=== PATIENT | male | born 1955 | race Caucasian/White ===

== ENCOUNTER 2017-06-15 11:26 | Day surgery (SDC) | payer MEDICAID ==
[2017-06-15] VITALS (10 sets, daily range): BP systolic 130–197; BP diastolic 74–127
[2017-06-15] MEDS ORDERED: LACTATED RINGERS 1,000 ML IV ONE (11:51)
[2017-06-15] MEDS ORDERED: meTOprolol 5 MG/5 ML (LOPRESSOR) VIAL ONE (13:14)
[2017-06-15] MEDS ORDERED: MIDAZOLAM 2 MG/2 ML (VERSED) VIAL ONE (13:24)
[2017-06-15] MEDS ORDERED: PROPOFOL INJECTION 50 ML IV ONE (13:24)
[2017-06-15] MEDS ORDERED: meTOprolol 5 MG/5 ML (LOPRESSOR) VIAL IV ONE (13:45)
--- NOTE | 2017-06-15 13:59 | Progress Note-Pre Operative ---
Pre-Operative Progress Note H&P Reviewed The H&P was reviewed, patient examined and no changes noted. Time Seen by Provider: 13:52 Date H&P Reviewed: June 15, 2017 Time H&P Reviewed: 13:55 Pre-Operative Diagnosis: Blood in stool MODE GARCIA DO June 15, 2017 13:59
[2017-06-15] MEDS ORDERED: LACTATED RINGERS 1,000 ML IV PRN (14:00)
[2017-06-15] MEDS ORDERED: proPOfol 200 MG/20 ML (DIPRIVAN) VIAL IV ONE ×2 (14:54→15:12)
--- NOTE | 2017-06-15 14:56 | Anesthesia-General Post-Op ---
MAC Patient Condition Mental Status/LOC: Same as Preop Cardiovascular: Satisfactory Nausea/Vomiting: Absent Respiratory: Satisfactory Pain: Controlled Complications: Absent Post Op Complications Complications None Follow Up Care/Instructions Patient Instructions None needed. Anesthesiology Discharge Order Discharge Order Patient is doing well, no complaints, stable vital signs, no apparent adverse anesthesia problems. No complications reported per nursing. STAS BUCHANAN CRNA June 15, 2017 14:56
--- NOTE | 2017-06-15 15:28 | Progress Note-Post Operative ---
Post-Operative Progess Note Surgeon (s)/Director Of Online Merchandising (s) Surgeon MODE GARCIA DO Director Of Online Merchandising: none Pre-Operative Diagnosis Blood in stool Post-Operative Diagnosis Polyps Diverticula Internal hemorrhoids Procedure & Operative Findings Date of Procedure 06/15/17 Procedure Performed/Findings Colon with snare Anesthesia Type IV sedation by DIVIDEND CLERK Estimated Blood Loss Estimated blood loss (mL): scant Specimens/Packing Specimens Removed 2 polyps from ascending colon MODE GARCIA DO June 15, 2017 15:28
--- NOTE | 2017-06-15 15:29 | Endoscopy Discharge Instruct ---
Endo Procedure/Findings Findings 1.: Polyp 2.: Diverticulosis 3.: Internal Hemorrhoids Discharge Instructions - Activity: You might feel a little sleepy until tomorrow. This is due to the medicine you received to relax you. Until tomorrow, you should: NOT drive a car, operate machinery or power tools. NOT drink any alcoholic beverages. NOT make any important decisions or sign importortant papers. Do not return to work until tomorrow, unless otherwise instructed. Resume previous activities tomorrow. Diet: Start by taking liquids. If you tolerate liquids, advance to solid food. Notify Physician - If you experience excessive bleeding, unusual abdominal pain, fever, or chest pain, contact your doctor immediately. Follow-Up: - I have received and understand the above instructions and will call my doctor if I have any further questions. Patient Signature Date Nurse Signature Other (Relationship) MODE GARCIA DO June 15, 2017 15:29
--- NOTE | 2017-06-17 03:02 | OPERATIVE REPORT ---
DATE OF SERVICE: 06/15/2017 PREOPERATIVE DIAGNOSIS: Rectal bleed as well as positive Cologuard test. POSTOPERATIVE DIAGNOSES: 1. Colon polyps. 2. Diverticula. 3. Internal hemorrhoids. PROCEDURE: Colonoscopy with snare polypectomy. SURGEON: Dr. Bagley. BATTERY STARTER: None. ANESTHESIA: IV sedation by the HUMAN CAPITAL CONSULTANT. SPECIMEN: Two polyps from the ascending colon. BLOOD LOSS: Scant. FLUIDS: Per anesthesia. POSTOPERATIVE CONDITION: Stable. INDICATION FOR PROCEDURE: The patient is a 62-year-old male who has been having some rectal bleeding and at his primary care physician's office, a Cologuard test was done, which came back as positive. FINDINGS: The patient had 2 probably close to 1 cm polyps in the ascending colon. He also had some large diverticula and some internal hemorrhoids, but did not see any type of a large polyp or cancer. Cologuard is only 92% sensitive, I believe. PROCEDURE NOTE: After informed consent was obtained, the patient was brought to the endoscopy suite, placed in the bed in left lateral decubitus position. He was administered IV sedation by HUMAN CAPITAL CONSULTANT who then monitored his vitals the entire time, heart rate, blood pressure and pulse ox and the scope was inserted, pushed into the rectum all the way to the cecum about 150 cm, able to get to the cecum. On the way, noted some diverticula and took some pictures, got to the cecum, took a picture of appendiceal orifice and able to get into the terminal ileum and took a picture and then slowly withdrew the scope insufflating and looking circumferentially at the wall. Starting in the cecum, up the ascending colon; in the ascending colon, saw a small flat polyp, did a snare polypectomy of this. Then continued up another 5 to 10 cm, saw another flat polyp and did another snare polypectomy of this. Both of these were sent to pathology and then continued up to the hepatic flexure, then down the transverse colon to the splenic flexure and then into descending colon and sigmoid colon. A lot of diverticula were seen in here and then down into the rectum, retroflexed the rectal vault, saw some internal hemorrhoids, took a picture of this, they are probably grade II at least and looked like they may have been the cause of bleeding. I pushed back in and spent a lot of time looking to make sure I did not miss any large mass or cancer and did not see anything in his colon. The scope was removed. The patient tolerated the procedure and he was recovered in the endoscopy suite. Job ID: [id number] DocumentID: [id number] Dictated Date: 06/16/2017 16:30:38 Yard Stocker Date: 06/17/2017 03:01:00 Dictated By: DO JAZMINE CHASE
== END 2017-06-15 16:33 | disposition home or self-care (01) ==
LOC: ENDO 11:26
PROVIDERS: ATTEND Surgery
DX: D12.4 Benign neoplasm of descending colon (principal); K63.5 Polyp of colon; I10 Essential (primary) hypertension; K57.30 Diverticulosis of large intestine without perforation or abscess without bleeding; K64.8 Other hemorrhoids; J44.9 Chronic obstructive pulmonary disease, unspecified; Z79.899 Other long term (current) drug therapy
CPT/HCPCS: 88305